=== PATIENT | female | born 1995 | race Caucasian/White ===

== ENCOUNTER 2017-08-15 10:38 | Emergency (ER) | payer OTHER ==
[~2017-08-15] VITALS: Ht 167.6 cm; Wt 51.7 kg
[2017-08-15 10:38] VITALS: BP_SYST 113
--- NOTE | 2017-08-15 10:38 | NUR ---
Pt report received from KYLAH Arvizu. Pt c/o N/V with lower abdominal pain and decreased appetite. No rebound tenderness noted. No active vomiting noted at this time.
--- NOTE | 2017-08-15 10:38 | NUR ---
BROUGHT BACK TO BED #4 AND TRIAGED, REPORT GIVEN TO RANDY
[2017-08-15] MEDS ORDERED: NACL 0.9% 1,000 ML IV ONE (11:00)
--- NOTE | 2017-08-15 11:00 | NUR ---
# 20 gauge angiocath placed to LAC. Use of asceptic technique. Opsite placed over site. Blood return noted. Blood for lab drawn from site. Flushed with 10 cc of normal saline. No evidence of infiltration noted. Patient tolerated well.
--- NOTE | 2017-08-15 11:00 | NUR ---
Dr. Lu at bedside to assess pt.
[2017-08-15 11:16] LABS: EOSINOPHILS # (AUTO) 0.1 K/uL (0.0-0.4); EOSINOPHILS % (AUTO) 1.7 % (0.0-4.0); HEMATOCRIT 42.9 % (36-48); HEMOGLOBIN 14.4 g/dL (12.0-16.0); LYMPHOCYTES # (AUTO) 1.3 K/uL (1.0-5.5); LYMPHOCYTES % (AUTO) 28.7 % (20.5-51.5); MEAN CORPUSCULAR HEMOGLOBIN 31 pg (27-31); MEAN CORPUSCULAR HGB CONC 34 % (32-36); MEAN CORPUSCULAR VOLUME 93 fL (79.0-98.0); MONOCYTES # (AUTO) 0.3 K/uL (0.0-1.0); MONOCYTES % (AUTO) 7.3 % (1.7-9.3); NEUTROPHILS # (AUTO) 2.9 K/uL (1.8-7.7); NEUTROPHILS % (AUTO) 62.3 % (40.0-70.0); PLATELET COUNT (AUTO) 323 K/uL (130-430); RED BLOOD CELL COUNT(AUTO) 4.64 MIL/uL (4.2-6.2); RED CELL DISTRIBUTION WIDTH 12.1 % (9.0-15.0); WHITE BLOOD COUNT (AUTO) 4.6 K/uL (4.5-11.0)
--- NOTE | 2017-08-15 11:25 | NUR ---
Radiology at bedside.
[2017-08-15 11:34] LABS: CALCIUM 9.4 mg/dL (8.4-11.0); CREATININE 0.81 mg/dL (0.55-1.30); POTASSIUM 3.7 mmol/L (3.5-5.1)
[2017-08-15 11:39] LABS: PROTHROMBIN TIME 10.4 SECS (9.5-12.5)
--- NOTE | 2017-08-15 11:41 | NUR ---
IV Fluids given. Pt tolerated well. No adverse reactions noted.
[2017-08-15 11:48] LABS: ALBUMIN 3.9 g/dL (3.4-4.8); TOTAL BILIRUBIN 0.4 mg/dL (0.0-1.0)
[2017-08-15 11:52] LABS: BILIRUBIN,URINE NEGATIVE (NEGATIVE); BLOOD, URINE NEGATIVE (NEGATIVE); CLARITY/URINE CLEAR (CLEAR); COLOR,URINE YELLOW (YELLOW); GLUCOSE,URINE NEGATIVE (NEGATIVE); KETONES,URINE NEGATIVE (NEGATIVE); LEUKOCYTE ESTERASE ,URINE NEGATIVE (NEGATIVE); NITRITE, URINE NEGATIVE (NEGATIVE); PH,URINE 7.5 (5.0-8.0); PROTEIN URINE NEGATIVE (NEGATIVE); UROBILINOGEN,URINE 0.2 (0.2-1.0)
[2017-08-15] MEDS ORDERED: MAGNESIUM CITRATE 300 ML ORAL SOLUTION PO ONE (12:15)
[2017-08-15 12:20] VITALS: BP_SYST 122
--- NOTE | 2017-08-15 12:20 | NUR ---
Patient given written and verbal discharge instructions and verbalizes understanding. ER MD discussed with patient the results and treatment provided. Patient in stable condition. ID arm band removed. IV catheter removed intact and dressing applied, no active bleeding. No Rx given. Patient educated on pain management and to follow up with PMD. Pain Scale 0/10. Opportunity for questions provided and answered.
== END 2017-08-15 12:20 | disposition home or self-care (01) ==
LOC: SED 10:38
DX: R10.33 Periumbilical pain (principal); R11.2 Nausea with vomiting, unspecified; R63.0 Anorexia
CPT/HCPCS: 36415; 74000; 80053; 81003; 81025; 83605; 83690; 85025; 85610; 87040; 96360; 99285; J7030